=== PATIENT | male | born 1940 | race Two or more races ===

== ENCOUNTER 2018-02-26 19:52 | Emergency (ER) | payer OTHER ==
[~2018-02-26] VITALS: Ht 167.6 cm; Wt 93.0 kg
[2018-02-26] MEDS ORDERED: CASODEX50 MG PO (20:23)
[2018-02-26] MEDS ORDERED: PAXIL CR25 MG PO (20:23)
[2018-02-26] MEDS ORDERED: CATAPRES0.1 MG PO (20:25)
[2018-02-26] MEDS ORDERED: CARDURA1 MG PO (20:25)
[2018-02-26] MEDS ORDERED: ZESTRIL40 M1 PO (20:26)
[2018-02-26] MEDS ORDERED: SYNTHROID112 MCG PO (20:26)
[2018-02-26] MEDS ORDERED: NEURONTIN300 MG PO (20:27)
[2018-02-26] MEDS ORDERED: PROTONIX40 MG PO (20:27)
[2018-02-26] MEDS ORDERED: TERAZOSIN HCL2 M1 PO (20:27)
== END 2018-02-26 23:46 | disposition home or self-care (01) ==
LOC: ER 19:52
DX: K59.09 Other constipation (principal)